=== PATIENT | male | born 1965 | race African-American/Black ===

== ENCOUNTER 2024-09-09 19:41 | Emergency (ER) | payer SELFPAY ==
[~2024-09-09] VITALS: Ht 165.1 cm; Wt 68.0 kg
[2024-09-09 19:52] VITALS: TEMP 37; O2SAT 98
[2024-09-09 20:10] VITALS: BP 116/73; PULSE 65; RESP 17; O2SAT 98
[2024-09-09 21:45] LABS: BASOPHILS % 0.4 % (0.0-2.0); EOSINOPHILS % 0.5 % (0.0-5.0); HEMATOCRIT. 39.4 % (42.0-52.0); HEMOGLOBIN. 13.6 g/dL (14.0-18.0); LYMPHOCYTES % 34.1 % (20.0-50.0); MEAN CORPUSCULAR HGB CONC 34.5 g/dL (31.0-37.0); MEAN PLATELET VOLUME 7.6 fl (7.4-10.4); MONOCYTES % 7.3 % (2.0-8.0); NEUTROPHILS % 57.7 % (40.0-76.0); PLATELET 215 x1000/uL (130-400); RED BLOOD CELL COUNT 4.24 mill/uL (4.7-6.1); RED CELL DISTRIBUTION WIDTH 13.5 % (11.6-14.6)
[2024-09-09 21:53] LABS: CHLORIDE 107 mEq/L (98-107); POTASSIUM 3.3 mEq/L (3.5-5.1); SODIUM 140 mEq/L (136-145)
[2024-09-09 21:54] LABS: CARBON DIOXIDE 22 mEq/L (21-32)
[2024-09-09 21:55] LABS: CALCIUM 9.6 mg/dL (8.7-10.4)
[2024-09-09 21:56] LABS: PARTIAL THROMBOPLASTIN TIME 24.8 sec (23.4-31.0); PROTHROMBIN TIME 10.9 sec (9.6-11.0)
[2024-09-09 21:59] LABS: CREATININE 0.9 mg/dL (0.6-1.3); GLUCOSE 97 mg/dL (70-105)
[2024-09-09 22:00] LABS: UREA NITROGEN BLOOD 15 mg/dL (9-23)
[2024-09-09 22:21] LABS: TROPONIN I HIGH SENSITIVITY < 4 ng/L (3.0-53)
== END 2024-09-09 21:33 | disposition left against medical advice (07) ==
LOC: ER 19:41
DX: R55 Syncope and collapse (principal); I10 Essential (primary) hypertension; Z79.899 Other long term (current) drug therapy; Z86.73 Personal history of transient ischemic attack (TIA), and cerebral infarction without residual deficits; Z88.0 Allergy status to penicillin
CPT/HCPCS: 36415; 71045; 80048; 83735; 83880; 84484; 85025; 93005; 99284; 99285